=== PATIENT | female | born 1955 | race Two or more races ===

== ENCOUNTER 2018-09-18 17:19 | Emergency (ER) | payer OTHER ==
[~2018-09-18] VITALS: Ht 154.9 cm; Wt 70.7 kg
--- NOTE | 2018-09-18 17:27 | NUR ---
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 PER [facility], PT W/ WITNESSED FALL AT WORK FROM A STEP. LOC WITH INITIAL FALL AND AGAIN PRIOR TO [facility] ARRIVAL. PT NOW A&OX4, SPEECH CLEAR. FACE SYMMETRICAL. PT CO PAIN AROUND L EAR, KEY AND L KNEE PAIN. +SENSITIVITY TO LIGHT. GROSS NEURO INTACT. DENIES BLOOD THINNERS. NO MIDLINE NECK OR BACK PAIN. NO OPEN WOUNDS OR OBVIOUS DEFORMITIES NOTED. NO C-COLLAR NEEDED PER [facility]. BP/SPO2/ECG MONITORING IN PLACE. NSR ON MONITOR.
[2018-09-18] MEDS ORDERED: ONDANSETRON ODT 4 MG PO ONE (17:30)
[2018-09-18] MEDS ORDERED: HYDROcodone/APAP 5/325 TABLET PO ONE (17:30)
[2018-09-18] MEDS ORDERED: HYDROcodone/APAP 5/325 TABLET ONE (17:44)
[2018-09-18] MEDS ORDERED: ONDANSETRON ODT 4 MG ONE (17:44)
--- NOTE | 2018-09-18 17:47 | NUR ---
PT MEDICATED PER [facility] FOR PAIN.
--- NOTE | 2018-09-18 19:00 | NUR ---
BEDSIDE REPORT RECEIVED FROM JUDY PACK, ASSUMING CARE OF PT. PT BACK FROM CT AT THIS TIME
[2018-09-18 19:46] VITALS: BP 148/78
--- NOTE | 2018-09-18 19:46 | NUR ---
ALL RESULTS BACK AT THIS TIME, CHART UP FOR RECHECK. PT STATES STILL EXPERIENCING 9/10 NECK PAIN.
== END 2018-09-18 20:10 | disposition home or self-care (01) ==
LOC: ED 19:45
DX: S16.1XXA Strain of muscle, fascia and tendon at neck level, initial encounter (principal); S09.90XA Unspecified injury of head, initial encounter; R55 Syncope and collapse; W18.00XA Striking against unspecified object with subsequent fall, initial encounter; Y93.89 Activity, other specified; Y92.69 Other specified industrial and construction area as the place of occurrence of the external cause; Y99.0 Civilian activity done for income or pay
CPT/HCPCS: 70450; 72125; 73590; 99284; Q0162